=== PATIENT | female | born 1935 | race Caucasian/White ===

== ENCOUNTER 2017-12-22 10:22 | Outpatient (CLI) | payer MEDICARE, SELFPAY ==
[2017-12-22 10:44] VITALS: BP 120/42; PULSE 50; RESP 18; TEMP 36; O2SAT 98
--- NOTE | 2017-12-22 11:22 | PC.NURSE ---
pt procedure was postponed related to her not having a driver/sales workers to take her home. She will come back on Wednesday for her injection.
== END 2017-12-22 11:24 ==
LOC: RAD 10:25
PROVIDERS: Visit Provider Physical Medicine & Rehabilitation
DX: M48.02 Spinal stenosis, cervical region (principal); Z53.8 Procedure and treatment not carried out for other reasons
CPT/HCPCS: J1100; J2250

== ENCOUNTER 2017-12-28 10:51 | Outpatient (CLI) | payer MEDICARE, SELFPAY ==
[2017-12-28] VITALS (8 sets, daily range): BP systolic 100–127; BP diastolic 29–56; PULSE 47–55; RESP 16–18; TEMP 35.9; O2SAT 97–100
--- NOTE | 2017-12-28 | DI.RAD.S_ITS ---
PROCEDURE: PAIN C/T INTERLAMINAR INJECT INDICATIONS: SPINAL STENOSIS FINDINGS: Fluoroscopic spot filming was performed to verify placement of spinal needles at the C6-C7 level(s), as labeled on the films. Appropriate location(s) of the needle tip(s) was confirmed by injection of iodinated contrast. IMPRESSION: Fluoroscopy for pain management. Dictated by: Eloisa Campa M.D. on 12/28/2017 at 14:53 Approved by: Eloisa Campa M.D. on 12/28/2017 at 14:54
--- NOTE | 2017-12-28 11:18 | PM.PROC.1 ---
Procedures Date/Time Date of procedure: 12/28/17 Time of procedure: 11:26 General Procedure description: PREOP DIAGNOSIS 1. CERVICAL STENOSIS, 2. CERVICAL HNP WITH UPPER EXTREMITY RADICULAR FEATURES, POST OP DIAGNOSIS 1. CERVICAL STENOSIS, 2. CERVICAL HNP WITH UPPER EXTREMITY RADICULAR FEATURES, PROCEDURES 1. FLUORSCOPICALLY GUIDED CONTRAST CONTROLLED INTERLAMINAR EPIDURAL STEROID INJECTION - C6/7 TL EDGAR PHYSICIAN: Farrukh Chiu, DO INDICATIONS Darby is referred for treatment of Cervical Stenosis with Upper Extremity Paresthesias. FINDINGS Cervical Stenosis due to disc deterioration and nerve root irritation and nerve root irritation DESCRIPTION OF PROCEDURE Fluoroscopically guided, contrast-controlled C6/7 translaminar epidural steroid injection with conscious sedation. Following denial of allergy and review of potential side effects and complications, including, but not necessarily limited to, infection, allergic reaction, local tissue breakdown, temporary as well as permanent nerve injury, stroke, paralysis, and possible , the patient indicated that patient understood and agreed to proceed. An informed consent document was signed by the patient, witnessed by a nurse, and placed in the patient's chart. Additionally, other treatment options including modalities, medications, and physical therapy were reviewed with the patient. After review of previous anaesthesic history and IV conscious sedation the patient was deemed safe to proceed with todays procedure with IV conscious sedation as ASA class II designation. Safety time-out was performed to confirm patient ID, procedure to be performed and site of procedure. IV sedation was accomplished with a combination of 3mg of Versed administered by the RN after DO order, titrated to patient comfort during the course of the procedure while the patient remained responsive to all verbal commands. In the prone position, following sterile prep and drape of the cervical region, the C6/7 translaminar space was identified fluoroscopically. The skin was anesthetized via a 25-gauge 1.5-inch needle with 1% lidocaine solution. At this point, a 25-gauge, 2.5-inch short bevel spinal needle was atraumatically introduced and advanced under fluoroscopic guidance into epidural space at the C6/7 translaminar space. Depth was confirmed on lateral view. Radiological data, including multiple fluoroscopic views of the cervical spine, reveal a spinal needle at the C6/7 translaminar space. Lateral views then show placement of the needle in the epidural space. Subsequent views show contrast material flowing superiorly and inferiorly in the epidural space. DSA fluoroscopy with live contrast injection, once again, confirmed no vascular or intrathecal uptake. At this point, using loss of resistance technique with saline and air, the epidural space was entered. Following negative aspiration, injection of approximately 1.5 cc of Isovue-200 with live fluoroscopy in the AP view confirmed epidural flow in the epidural space without vascular or intrathecal uptake observed. Subsequently, a test dose of 1 cc of 1% lidocaine solution was injected and patient was observed for two minutes without signs or symptoms of complications, including abdominal pain, shortness of breath, bilateral upper or lower extremity weakness, nausea and vomiting, prior to steroid injection. At this point, 3 cc or 30 mg of dexamethasone was then injected without incident. The patient tolerated the procedure well without signs or symptoms of complications prior to being transferred to the recovery area for further monitoring, The patient was then transferred to the recovery area where they were observed for an appropriate period of time after the injection. The patient reported a VAS score of 6 prior to the procedure and a post-procedure VAS of 0. Total Fluoroscopy Time: 37.0 seconds Total Conscious Time: 24min POST OP INSTRUCTIONS The patient was provided a Pain Log to continue to record their response to the target-specific procedure prior to follow-up visit with the referring provider. Additionally, specific post-injection care instructions and a contact number to our office were provided if concerns arise regarding possible complications associated with the procedure are suspected. Farrukh Chiu DO Complications: none
[2017-12-28] MEDS: MIDAZOLAM 5 MG/5 ML VIAL IV (11:40)
[2017-12-28] MEDS: DEXAMETHASONE 10 MG/ML VIAL 30 MG INJ (11:50)
[2017-12-28] MEDS: IOPAMIDOL 15 ML VIAL 3 ML INJ (11:50)
[2017-12-28] MEDS: LIDOCAINE 1% 20 ML INJ 5 ML INJ (11:50)
--- NOTE | 2017-12-28 11:56 | PC.NURSE ---
assisting pt off table and transporting to post proc area in stable condition
--- NOTE | 2017-12-28 12:04 | PC.NURSE ---
received pt from post procedure, she is awake and alert, able to move from w/c to chair, resumed monitoring.
--- NOTE | 2017-12-29 12:52 | PC.NURSE ---
FOLLOW UP CALL MADE. LEFT MSG WITH CLINIC NUMBER AND HOURS FOR ANY QUESTIONS/CONCERNS.
== END 2017-12-28 12:23 | disposition home or self-care (01) ==
PROVIDERS: Visit Provider Physical Medicine & Rehabilitation
DX: M48.02 Spinal stenosis, cervical region (principal); M50.123 Cervical disc disorder at C6-C7 level with radiculopathy; R20.2 Paresthesia of skin
CPT/HCPCS: 62321; 99152; J1100; J2250

== ENCOUNTER 2018-08-25 13:12 | Outpatient (CLI) | payer MEDICARE, SELFPAY ==
[2018-08-25] VITALS (7 sets, daily range): BP systolic 114–138; BP diastolic 44–63; PULSE 53–71; RESP 16; TEMP 36.2; O2SAT 99–100
--- NOTE | 2018-08-25 13:13 | DI.RAD.S_ITS ---
PROCEDURE: PAIN L/S TRANSFORAMINAL INJECT INDICATIONS: SPINAL STENOSIS FINDINGS: Fluoroscopic spot filming was performed to verify placement of spinal needles at the L5-S1 level(s), as labeled on the films. Appropriate location(s) of the needle tip(s) was confirmed by injection of iodinated contrast. IMPRESSION: Fluoroscopy for pain management. Dictated by: Eloisa Campa M.D. on 08/25/2018 at 18:00 Approved by: Eloisa Campa M.D. on 08/25/2018 at 18:00
--- NOTE | 2018-08-25 13:47 | PM.PROC.1 ---
Procedures Date/Time Date of procedure: 08/25/18 Time of procedure: 14:11 General Procedure description: PREOP DIAGNOSIS 1. FORMAINAL STENOSIS WITH LE SYMPTOMS POST OP DIAGNOSIS 1. FORMAINAL STENOSIS WITH LE SYMPTOMS PROCEDURES 1. FLUOROSCOPICALLY GUIDED CONTRAST CONTROLLED TRANSFORAMINAL EPIDURAL STEROID INJECTION - Left L5/S1 PHYSICIAN: Farrukh Chiu DO INDICATIONS: Darby is referred for treatment of Foraminal Stenosis with left LE Symptoms FINDINGS Foraminal Nerve Root Compression secondary to disc disease and facet hypertrophy DESCRIPTION OF PROCEDURE: Following review of allergy and review of potential side effects and complications, including, but not necessarily limited to, infection, allergic reaction, local tissue breakdown, stroke, temporary or permanent nerve injury, paralysis, and possible , the patient indicated that the patient understood and agreed to proceed. An informed consent document was signed by the patient, witnessed by a nurse, and placed in the patient's chart. Additionally, other treatment options including medications, modalities, and physical therapy were reviewed with the patient. After review of previous anaesthesic history and IV conscious sedation the patient was deemed safe to proceed with todays procedure with IV conscious sedation as ASA class II designation. Safety time-out was performed to confirm patient ID, procedure to be performed and site of procedure. IV sedation was accomplished with a combination of 2mg of Versed and 50mcg of Fentanyl was administered by the RN after DO order, titrated to patient comfort during the course of the procedure while the patient remained responsive to all verbal commands In the prone position following sterile prep and drape of the lumbar region, the Left L5/S1 posterior neuroforamen was identified fluoroscopically. The skin was anesthetized via a 25-gauge 1.5-inch needle with 1% lidocaine solution. At this point, a 25-gauge 3.5-inch spinal needle was atraumatically introduced and advanced under fluoroscopic guidance through the posterior Left L5/S1 neuroforamen to approximately the anterior aspect of the canal. Depth was confirmed on lateral view. Following negative aspiration, injection of approximately 1.5 cc of Isovue 200 under live fluoroscopy in the AP view confirmed excellent flow along the nerve root, into the epidural space without vascular or intrathecal uptake observed Radiological data, including multiple fluoroscopic views of the lumbosacral spine, reveal a spinal needle at the Left L5/S1 posterior neuroforamen. Subsequent views show flow of contrast material flowing superiorly and inferiorly along the nerve root confirming epidural flow. Subsequently, a test dose of 1.5 cc of 1% lidocaine solution was administered and patient was observed for two minutes for signs or symptoms of complications, including abdominal pain, shortness of breath, bilateral upper or lower extremity weakness, nausea and vomiting, prior to steroid injection. At this point, a total of 2cc or 20mg of dexamethasone was injected without incident. The procedure tolerated the procedure well without signs or symptoms of complications prior to transfer to the recovery area continued monitoring without incident. The patient was then transferred to the recovery area where they were observed for an appropriate time after the injection. The patient reported a VAS score of 7 prior to the procedure and a post-procedure VAS of 0. Total Fluoroscopy Time: 20.9 seconds Total Conscious Sedation Time: 24min POST OP INSTRUCTIONS The patient was provided a Pain Log to continue to record their response to the target-specific procedure prior to follow-up visit with their referring physician. Additionally, specific post-injection care instructions and a contact number to our office were provided if concerns arise regarding possible complications associated with the procedure are suspected. Farrukh Chiu DO Complications: none
[2018-08-25] MEDS: fentaNYL 100 MCG/2 ML INJ 50 MCG IV (13:50)
[2018-08-25] MEDS: MIDAZOLAM 5 MG/5 ML VIAL IV (13:50)
[2018-08-25] MEDS: BUPIVACAINE 0.25% (PF) VIAL 2 ML INJ (13:57)
[2018-08-25] MEDS: BETAMETHASONE 30 MG/5 ML MDV 12 MG INJ (13:57)
[2018-08-25] MEDS: IOPAMIDOL 15 ML VIAL 3 ML INJ (13:57)
[2018-08-25] MEDS: DEXAMETHASONE 10 MG/ML VIAL 20 MG INJ (14:00)
--- NOTE | 2018-08-25 14:05 | PC.NURSE ---
pt tolerated procedure well. Able to get off the table with 2 person minimal assist. She was a little unsteady on her feet related to the sedation. Transferred pt via wheelchair to pre procedure room for continued monitoring with Yun BETHEA.
--- NOTE | 2018-08-25 14:17 | PC.NURSE ---
ACCEPTED CARE OF PT IN POST PROC AREA IN STABLE CONDITION
== END 2018-08-25 14:40 | disposition home or self-care (01) ==
LOC: RAD 13:13
PROVIDERS: Visit Provider Physical Medicine & Rehabilitation
DX: M48.07 Spinal stenosis, lumbosacral region (principal); M51.17 Intervertebral disc disorders with radiculopathy, lumbosacral region
CPT/HCPCS: 64483; 99152; J0702; J1100; J2250; J3010

== ENCOUNTER 2018-12-23 10:44 | Outpatient (CLI) | payer MEDICARE, SELFPAY ==
[2018-12-23] VITALS (7 sets, daily range): BP systolic 100–145; BP diastolic 35–78; PULSE 50–80; RESP 16–20; TEMP 36.7; O2SAT 99–100
--- NOTE | 2018-12-23 10:47 | DI.RAD.S_ITS ---
PROCEDURE: PAIN L/S MED/LAT N RFA INDICATIONS: SPONDYLOSIS FINDINGS: Fluoroscopic spot filming was performed to verify placement of spinal needles at the L5 and S1 level(s), as labeled on the films. Appropriate location(s) of the needle tip(s) was confirmed by injection of iodinated contrast. There is discectomy and posterior fusion at L4-L5. IMPRESSION: Fluoroscopy for pain management. Dictated by: Eloisa Campa M.D. on 12/23/2018 at 17:11 Approved by: Eloisa Campa M.D. on 12/23/2018 at 17:11
[2018-12-23] MEDS: MIDAZOLAM 5 MG/5 ML VIAL IV (12:28)
[2018-12-23] MEDS: fentaNYL 100 MCG/2 ML INJ 50 MCG IV (12:29)
[2018-12-23] MEDS: LIDOCAINE 1% 20 ML 10 ML INJ (12:34)
[2018-12-23] MEDS: BETAMETHASONE 30 MG/5 ML MDV 12 MG INJ (12:34)
[2018-12-23] MEDS: BUPIVACAINE 0.5% (PF) VIAL 2 ML INJ (12:34)
--- NOTE | 2018-12-23 12:39 | PC.NURSE ---
ASSISTING PT OFF TABLE AND TRANSPORTING TO POST PROC AREA IN STABLE CONDITION.
--- NOTE | 2018-12-23 12:50 | P.PCN_ITS ---
Procedures Date/Time Date of procedure: 12/23/18 Time of procedure: 12:50 General Procedure description: PREOP DIAGNOSIS 1. RECALCITRANT FACET ARTHROPATHY, POST OP DIAGNOSIS 1. RECALCITRANT FACET ARTHROPATHY, PROCEDURES 1. LEFT L5 MEDIAL BRANCH RADIOFREQUENCY NEUROTOMY AND LEFT S1 DORSAL RAMUS RADIOFREQUENCY NEUROTOMY, PHYSICIAN: DO HIRO Laurent Darby is referred for treatment of facet arthropathy. DESCRIPTION OF PROCEDURE Left L5 medial branch radiofrequency neurotomy and left S1 dorsal ramus branch radiofrequency neurotomy under fluoroscopy with conscious sedation. The patient is well known to this clinic having undergone previous facet injections with good but temporary relief. The patient has experienced appropriate, concordant relief with previous facet and median branch blocks but the patient's pain has been recalcitrant to further conservative measures. Therefore, based upon the patient's relief and persistent symptoms, the patient is considered an appropriate candidate for facet rhizotomy. All of the patient's questions regarding the risks versus benefits of the procedure, including, but not limited to, bleeding, infection, temporary as well as lasting nerve injury, paralysis, stroke, and , as well treatment alternatives were answered to satisfaction. After obtaining informed consent, denial of pertinent drug allergies, as well as being made aware of the potential risks of bleeding, infection, spinal cord trauma, paralysis, temporary and permanent nerve damage, seizure, stroke, and possible , the patient was brought to the fluoroscopy suite and positioned prone on the fluoroscopy table. The lumbar region was prepped with Betadine and covered with a fenestrated drape in the usual sterile fashion. Appropriate monitors applied including pulse oximeter, pulse, and blood pressure for regular monitoring throughout the procedure. IV sedation was accomplished with a combination of 2mg of Versed and 50mcg of Fentanyl titrated to patient comfort during the course of the procedure while the patient remained responsive to all verbal commands. After local infiltration using 1% lidocaine, under fluoroscopic guidance, a 10- cm RF insulated needle with a 10-mm active tip was positioned parallel to the junction of the left sacral ala and the superior articulating process where the S1 dorsal ramus resides. Needle placement was confirmed with sensory stimulat ion at 50 Hz, with motor stimulation of .5v on the left which produced local stimulation without radicular component. The stimulation was then increased to 1.5v with, once again, only local multifidus stimulation without radicular component. This was then followed by two discreet lesions performed at 80 degrees Celsius for 90 seconds each. The needle was then removed and the identical procedure was performed along the length of the left L5 medial branch with motor stimulation at .7v on the left. The patient tolerated the procedure well without signs or symptoms of complications prior to transfer to the recovery area continued monitoring without incident. The patient was then transferred to the recovery area where they were observed for an appropriate period of time after the injection. The patient was then transferred to the recovery area where they were observed for an appropriate period of time after the injection. The patient reported a VAS score of 9 prior to the procedure and a post- procedure VAS of 0. Total Fluoroscopy Time: 22.7 seconds Total Conscious Sedation Time: 34min POST OP INSTRUCTIONS The patient was provided a Pain Log to continue to record the patient's response to the target-specific procedure prior to the patient's follow-up visit with the referring physician. Additionally, specific post-injection care instructions and a contact number to our office were provided if concerns arise regarding possible complications associated with the procedure are suspected. Farrukh Chiu DO Complications: none
--- NOTE | 2018-12-23 12:53 | PC.NURSE ---
PT TRANSPORTED TO POST PROC AREA IN STABLE CONDITION. CONTINUES TO BE IN STABLE CONDITION.
== END 2018-12-23 13:10 | disposition home or self-care (01) ==
LOC: RAD 10:46
PROVIDERS: Visit Provider Physical Medicine & Rehabilitation
DX: M47.817 Spondylosis without myelopathy or radiculopathy, lumbosacral region (principal)
CPT/HCPCS: 64635; 99152; J0702; J2250; J3010

== ENCOUNTER → 2019-07-19 11:17 | Outpatient (CLI) | payer MEDICARE, SELFPAY ==
[2019-07-20 07:44] LABS: COVID19 Sendout Not Detected (Not Detect)
== END ==
PROVIDERS: Visit Provider Registered Nurse
DX: Z01.812 Encounter for preprocedural laboratory examination (principal)
CPT/HCPCS: 87635

== ENCOUNTER 2019-07-21 06:37 | Day surgery (SDC) | payer MEDICARE, SELFPAY ==
[2019-04-27 08:16] VITALS: BMI 25.0
[2019-07-17 14:14] VITALS: BMI 25.0
[2019-07-21] VITALS (18 sets, daily range): BP systolic 124–180; BP diastolic 57–94; PULSE 60–75; RESP 7–24; TEMP 35.8–36.7; O2SAT 92–100; BMI 25.0
--- NOTE | 2019-07-21 | DI.RAD.S_ITS ---
PROCEDURE: XR CERVICAL SPINE 2V OR 3V INDICATIONS: C5-6, C6-7 ACDF WEST INPLANTS TECHNIQUE: 2 view(s) of the cervical spine were acquired. COMPARISON: None. FINDINGS: Bones: No fractures or dislocations to the T1 level. Postsurgical changes compatible C5-C6 and C6-C7 ACDF. No suspicious bony lesions. Soft tissues: No prevertebral soft tissue swelling. IMPRESSION: Status post C5-C6 and C6-C7 ACDF. Dictated by: Isis Chambers MD, PhD on 07/21/2019 at 9:39 Approved by: Isis Chambers MD, PhD on 07/21/2019 at 9:42
--- NOTE | 2019-07-21 07:19 | PM.PREOP ---
Pre-operative Note COVID-19 COVID-19 status: Negative Result date/Date tested (Pos, Neg/Pending): 07/19/19 Interval Note History & Physical reviewed/Exam performed by Physician: Yes Changes to H&P: No
[2019-07-21] MEDS: ACETAMINOPHEN 325 MG TABLET 975 MG PO (07:30)
[2019-07-21] MEDS: GABAPENTIN 300 MG CAPSULE PO ×2 (07:30→20:09)
[2019-07-21] MEDS: LACTATED RINGERS 1,000 ML 42 ML IV ×2 (07:31→09:50)
[2019-07-21] MEDS: CLINDAMYCIN 900 MG/50 ML PIGGYBACK 50 MG IV (07:47)
--- NOTE | 2019-07-21 08:22 | SUR.OPER ---
Supine, head on gel donut. Arms padded with gel pads, tucked at sides, towel roll under shoulders. Safety belt at thigh. Legs uncrossed.
[2019-07-21] MEDS: BUPIVACAINE 0.25% W/ EPI 30 ML VIAL INJ (08:29)
[2019-07-21] MEDS: SODIUM CHLORIDE 0.9% 1,000 ML, GENTAMICIN 80 MG IRR (08:30)
[2019-07-21] MEDS: THROMBIN (RECOMBINANT) 5,000 UNIT VIAL 5000 UNIT TOP (08:30)
[2019-07-21] MEDS: INSULIN ASPART 100 UNIT/ML 10ML VIAL SUBCUT (09:09)
--- NOTE | 2019-07-21 09:21 | PM.OP.1 ---
Operative Date/Time/Diagnoses Date of procedure: 07/21/19 Time of procedure: 09:21 Pre-op diagnosis: Cervical disc herniation with myelopathy. Post-op diagnosis: same Procedure & Clinicians Procedure: C5-6, C6-7 anterior cervical diskectomy and fusion with cage and bone graft aspirate Use of microscope Same procedure as scheduled: Yes Indications: [age] year old female with intractable pain from cervical myelopathy. They had failed conservative management and requested operative intervention. Risks and benefits of surgery were discussed and appropriate consents were obtained. Surgeon: Haryr Mclaughlin Fiberglass Quality Technician: Victor Manuel Solomon Anesthesia Type: General Operative Notes Findings: None Closure Type: primary Specimen(s): none sent Prosthetic devices, grafts, tissues, transplants, or devices: Isabella WEST-C Estimated Blood Loss (mL): 10 Procedure in detail: Patient was brought to the operating room and intubated on the table. A time-out was performed. Preoperative antibiotics were given. The neck was prepped and draped in the standard sterile fashion. Using a skin fold, we made a 3 cm oblique incision on the left side. We used Bovie to go through the platysma and then did a standard anterolateral blunt dissection down to the precervical fascia. Fascia was nicked and elevated up. A marker was placed and x-ray was taken for localization. We then subperiosteally elevated up the longus colli muscles. Self-retaining retractors were placed. [place] pins were placed at C6-7. We then brought in the microscope. A scalpel used to perform an annulotomy. We then used a combination of pituitaries and curettes and Kerrison to perform a complete anterior diskectomy at C6-7. We used the bur to take down the posterior osteophytes. We took down the PLL and used Kerrison to remove any posterior disc material and osteophytes. At the end we could from the nerve hook cephalad caudally and out the foramen and everything was opened. A small stab incision was made over the left anterior iliac crest. A Jamshidi needle was advanced into the pelvis and 2 mL of bone marrow was aspirated. We then used the trials. We then packed a 14 x 15.5 x 6 mm mm WEST-C cage with Primagen bone graft and the iliac crest harvest. The cage was placed under fluoroscopic guidance. We then placed our two locking plates. The self-retaining retractors and [place] pins were moved up to the C5-6 level. A scalpel used for an annulotomy at C5-6. We then used pituitaries, curettes, Kerrisons, and a bur to complete the diskectomy and take down the posterior osteophytes. Once we took down the PLL, the Kerrisons were used to remove the remainder of the posterior osteophytes. The nerve hook could be run cephalad caudally out the foramen and there was no neural compression. We again trialed and then placed another 14 x 15.5 x 6 mm cage with bone graft at the C5-6 level the anterior fusion at this level. The retractors removed and final x-rays taken. The wound was irrigated. There was no bleeding. The carotid was beating nicely. The platysma was closed. The superficial was closed. The skin was closed. A sterile dressing was placed. They were then extubated and brought to recovery room with no complications. Complications: none Post-operative Condition: stable Disposition: PACU Plan for aftercare: Inpatient. Up with PT. Probable discharge tomorrow.
[2019-07-21] MEDS: fentaNYL 100 MCG/2 ML INJ IV ×4 (09:24→09:40)
[2019-07-21] MEDS: HYDROMORPHONE 2 MG INJ IV ×8 (09:29→10:05)
[2019-07-21] MEDS: hydrOXYzine pamoate 25 MG CAPSULE PO (09:48)
[2019-07-21] MEDS: OXYCODONE IR 5 MG TABLET PO (09:48)
--- NOTE | 2019-07-21 11:07 | SUR.PHASEI ---
Patient taken up to room 205 with all belongings. Left in stable condition with receiving RN at bedside.
[2019-07-21] MEDS: LACTATED RINGERS 1,000 ML 125 ML IV ×2 (11:25→19:46)
[2019-07-21] MEDS: INSULIN ASPART 100 UNIT/ML INSULN PEN SUBCUT ×4 (12:39→20:56)
--- NOTE | 2019-07-21 13:19 | PC.NURSE ---
Day Shift- Report rec'd from NEEMA Moreno at 1028. Pt arrived to unit room 205 at 1100 via bed. Oriented to call light. HOB needs to be elevated above 30 degrees at all times. RR 10 bpm when asleep, awakens easily with verbal stimulation. O2 sat on RA while asleep was 88%, placed back on 2L NC O2. Sat increased to 95%. Anterior neck incision covered with CDI gauze and tegaderm dressing. Left groin incision dressing CDI of gauze and tegaderm. Soft neck collar in place. Pt's friend Nrom called at 1200 for an update. Pt approves okay to give info to Bella and Norm, see admission assessment. Pt reports having BM's at home every 5-7 days, last BM being on Tuesday 07/18. High fall risk precautions in place, bed alarm on, call light within reach. Speech in to see pt at 1320. Pt has tolerated ice chips, water, small bites of fruit. Pt states having a history of right side throat swallowing difficulty at different times regardless of texture, foods, liquids, pills. Pt did have nausea around 1250, scant amount of gastric emesis and gagging. Settled without medication.
--- NOTE | 2019-07-21 13:55 | ST.IPSCREEN ---
Addendum entered and electronically signed by Lynette Logan 07/21/19 14:11: Comprehensive ST evaluation not warranted at this time. Swallowing WFL. Discharge ST evaluation. Original Note: Darby seen for a swallow screen following ACDF surgery performed earlier today. Nursing reported no overt s/sx of aspiration since transferred from surgery to room this morning. KEY ACCOUNT DIRECTOR observed patient eating cantaloupe, turkey, and drinking water from a straw without any overt s/sx of aspiration. Patient's 02 sats remained 98-100. KEY ACCOUNT DIRECTOR provided patient with ACDF handout explaining voice and swallow changes post ACDF surgery. KEY ACCOUNT DIRECTOR reviewed handout with patient and placed it on her table. Marla Arteaga MS, CF-KEY ACCOUNT DIRECTOR
--- NOTE | 2019-07-21 14:25 | PT.IIE ---
Current Diagnoses Spinal stenosis, cervical region (07/21/19) Surgery Performed Operation Date: 05/02/19 10:00 <No data on this case meets the specified criteria> Operation Date: 07/21/19 07:45 Actual Procedures p C5-6 & C6-7 Anterior cervical discectomy and fusion w/bone graft - Harry Mclaughlin MD Surgical History (Last Updated 04/27/19 @ 08:43 by Fide Sin RN) History of aortic valve replacement (11/10/08) History of arthroplasty of left knee (Acute 10/18/13) History of back surgery (Acute 2010) History of bladder suspension procedure History of cataract removal with insertion of prosthetic lens History of surgery (Acute) History of third molar tooth extraction Hx of abdominoplasty (Acute) Hx of appendectomy (Acute) Hx of CABG (Acute) Hx of cardiac cath (Acute) Hx of foot surgery (Acute) S/P TAVR (transcatheter aortic valve replacement) (Acute 04/26/18) Status post laparoscopic cholecystectomy (1992) Status post vaginal hysterectomy Medical History (Last Updated 07/18/19 @ 13:00 by Fide Sin RN) Anxiety disorder (Acute) Arthritis (Acute) Awareness under anesthesia (Acute 1975) CAD (coronary artery disease) (Acute) COPD (chronic obstructive pulmonary disease) (Acute) Diabetes (Acute) Dizziness (Acute) Easy bruisability (Acute) Hiatal hernia (Acute) HTN (hypertension) (Acute) Hypothyroid (Acute) LBBB (left bundle branch block) (Acute) Myocardial infarction (Acute) PAF (paroxysmal atrial fibrillation) (Acute 11/10/08) Pneumonia (Acute 04/2019) Sciatic pain (Acute) Spondylosis without myelopathy or radiculopathy, lumbosacral region (Acute) Physical Therapy Inpatient Evaluation/Re-Eval M1 PT/OT-IP Prior Functional Status Start: 07/21/19 15:14 Freq: NEEDED Status: Active Protocol: Document 07/21/19 14:25 AB (Rec: 07/21/19 15:57 AB [id number]) Medical Review Prior Functional Status Medical History Reviewed Yes Communication able to make needs known Mobility and Gait pt stated that she is modified independent with all mobilities and ambulation without AD. pt stated that she was still driving prior to surgery Social History Household Members none Living Arrangements House Number of Floors (Floors) One Floor Number of Stairs To Enter/Railing? has 4 steps to enter with bilateral rails but pt stated that she holds on with B hand on 1 rail Home Environment High Toilet,Tub/Shower Home Equipment Front Wheel Walker,Grab Bars In Shower M2 PT-IP Current Condition Start: 07/21/19 15:14 Freq: NEEDED Status: Active Protocol: Document 07/21/19 14:25 AB (Rec: 07/21/19 15:57 AB [id number]) Physical Therapy Current Condition Current Condition Evaluation Date 07/21/19 Treatment Diagnosis s/p C5-7 ACDF; difficulty in walking Onset Date 07/21/19 Precautions Cervical Spine Precautions Soft Collar for Comfort,No Heavy Lifting,Log Roll M3 PT-IP Subjective Start: 07/21/19 15:14 Freq: NEEDED Status: Active Protocol: Document 07/21/19 14:25 AB (Rec: 07/21/19 15:57 AB [id number]) Subjective Physical Therapy Visit Type Type Initial Evaluation Visit Start Time 14:25 Visit Stop Time 15:04 Total Visit Minutes 39 Number of CAN FILLER Visits 0 Physical Therapy Visit Comments Patient Comments pt agreeable to do PT Therapy Pain Assessment Pain When Pain Assessed At Rest Pain Present Pain Present Pain Reported Location neck Intensity 4 Scale Used Numeric (1 - 10) Pain Management Techniques Re-positioning,Timing of Activity with Medications M4 PT-IP Mobility and Gait Start: 07/21/19 15:14 Freq: NEEDED Status: Active Protocol: Document 07/21/19 14:25 AB (Rec: 07/21/19 15:57 AB [id number]) PT-Bed Mobility Assessment Rolling Type of Rolling Log Rolling Level of Assist Standby Assistance Supine to Sit Supine to Sit Standby Assistance Sit to Supine Sit to Supine Standby Assistance Scooting Scooting to Edge of Bed Standby Assistance PT-Transfer Assessment Sit to and From Stand Sit to and from Stand Contact Guard Assistance,1 Person Assistance,Use of Upper Extremities Equipment Transfer Assistive Device None,Gait Belt Orthotic/Prosthetic Devices or Brace: Yes Transfers Transfer Destination Toilet Transfer Technique ambulated without AD Transfer Ability Level of Assist Contact Guard Assistance, Minimal Assistance,Use of Upper Extremities Comments Mobility Comments educated on cervical precautions and log roll bed mobility. BP: 125/65. pt completed supine to sit SBA. able to completed sit to stand CGA. pt has macular degeneration and had decrease vision/depth perception. pt was able to ambulated from bed towards the sink. educated on cervical soft collar management but pt needed assistance due to vision impairment. c/o slight ooziness but stated caitlin she is ok and pt requested to use the toilet and ambulated towards the toilet without AD CGA to min A. pt tends to hold on to the counter/green for balance. was able to completed sit to stand from the toilet using grab bar SBA and ambulated towards the sink without AD CGA to min A. pt was able to maintain standing balance CGA while completing handwashing. ambulated back to bed without AD CGA. completed bed mobility supine <>sit SBA with reminder to do log roll. postioned pt in bed. call light and table placed within reach. Gait Assessment Gait Gait Assistance Required: Contact Guard Assist,Minimum Assistance Distance (Feet) 15 Able to Maintain Weight Bearing Status Yes During Gait Assistive Devices Assistive Device None Orthotic/Prosthetic Devices or Brace: No Gait Deviations General Gait Pattern Antalgic,Wide Based Gait Factors Limiting Gait Function Factors Limiting Gait Function Decreased Activity Tolerance, Decreased Strength,Pain,Poor Balance Comments Gait Comments presents with unsteady wide based shuffling gait and tends to hold on to the wall/ counter for balance. pt has macular degeneration affecting balance. PT-Balance Assessment Sitting Balance and Reactions Static Sitting Balance Ability Good Dynamic Sitting Balance Ability Good Standing Balance and Reactions Static Standing Balance Ability Fair Dynamic Standing Balance Ability Fair Device Used without AD M5 PT-IP Objective Assessments Start: 07/21/19 15:14 Freq: NEEDED Status: Active Protocol: Document 07/21/19 14:25 AB (Rec: 07/21/19 15:57 AB [id number]) Orientation Orientation/Cognition Level of Alertness Alert Orientation Name,Place,Situation Language Function Ability No Deficits Noted Safety Awareness Understands Safety Issues Memory Description No Deficits Noted Gross Range of Motion Lower Extremity ROM Assessment Within Functional Limits Strength Lower Extremity Strength Assessment Within Functional Limits Sensation Assessment Sensation Gross Sensation Right UE Impaired Comments Sensation Comments c/o chronic tingling on RUE Muscle Tone Muscle Tone WNL Yes M6 PT-IP Treatment Start: 07/21/19 15:14 Freq: NEEDED Status: Active Protocol: Document 07/21/19 14:25 AB (Rec: 07/21/19 15:57 AB [id number]) Physical Therapy Treatment Education Education Provided Precautions,Post-Op Packet, Safety M7 PT-IP Assessment and Plan Start: 07/21/19 15:14 Freq: NEEDED Status: Active Protocol: Document 07/21/19 14:25 AB (Rec: 07/21/19 15:57 AB [id number]) PT Summary Assessment and Plan Potential Rehabilitation Potential Good Status of Condition at Evaluation Stable Summary Impairments Pain,ROM,Strength,Balance, Coordination,Sensation,Bed Mobility,Transfers,Gait, Activity Tolerance Assessment Summary pt requiring CGA with mobility and has a vision impairment affecting balance. pt plans to go home and a friend can assist her as needed but will not be able to stay with her. will continue to assess progress to determine safe d/c plan. Goals Bed Mobility Goal Independent Transfer Goal Independent Gait Goal Independent Gait Distance 200 Other Goals up/down 4 steps B rails SBA Days to Meet Goals 3 Frequency of Treatment Frequency Of Treatment Twice a Day Treatment Plan Physical Therapy Treatment Plan Bed Mobility Training,Transfer Training,Gait Training, Therapeutic Exercise,Balance Retraining,Post Op Education, Discharge Planning,Hot or Cold Pack,Neuromuscular Re-ed, Coordination Retraining,Manual Therapy Other Recommendations and Next Treatment ambulation, stair climbing, Focus bed mobility Recommendations To Nursing Amount of Assist Needed 1 Person Assist Discharge Recommendations PT Discharge Recommendations Home with Assistance, Outpatient PT Transportation Needs at Discharge Private Vehicle
[2019-07-21] MEDS: CELECOXIB 200 MG CAPSULE 400 MG PO (14:32)
[2019-07-21] MEDS: CLINDAMYCIN 600 MG/50 ML PIGGYBACK 50 MG IV (16:56)
[2019-07-21] MEDS: HYDROMORPHONE 0.5 MG INJ IV (16:57)
[2019-07-21] MEDS: CHOLECALCIFEROL (VITAMIN D3) 1,000 UNIT TABLET 1000 UNIT PO (20:07)
[2019-07-21] MEDS: SENNOSIDES 8.6 MG TABLET 17.2 MG PO (20:07)
[2019-07-21] MEDS: DOCUSATE 100 MG CAPSULE PO (20:08)
[2019-07-21] MEDS: ASCORBIC ACID 500 MG TABLET PO (20:08)
[2019-07-21] MEDS: ZOLPIDEM 5 MG TABLET 10 MG PO (20:08)
[2019-07-21] MEDS: VIT C/E/ZN/COPPR/LUTEIN/ZEAXAN CAPSULE 1 CAP PO (20:12)
[2019-07-21] MEDS: SODIUM CHLORIDE 0.9% FLUSH 10 ML IV (20:29)
[2019-07-21] MEDS: CELECOXIB 200 MG CAPSULE PO (20:30)
--- NOTE | 2019-07-21 23:34 | PC.NURSE ---
Pt concerned with her blood glucose levels, requested more short acting insulin. call center team leader MD Mustafa ordered medium level sliding scale.
[2019-07-22 00:05] VITALS: O2SAT 100
[2019-07-22] MEDS: CLINDAMYCIN 600 MG/50 ML PIGGYBACK 50 MG IV (00:07)
--- NOTE | 2019-07-22 01:50 | PC.NURSE ---
Pt. confused, trying to get OOB without calling for assistance. States I thought I was at home & I need to use the BR. Still sedated & denies any pain. Will cont. POC & monitor.
[2019-07-22 05:00] VITALS: BP 131/57; PULSE 62; RESP 18; TEMP 36.7; O2SAT 95
[2019-07-22] MEDS: OXYCODONE IR 5 MG TABLET PO ×2 (05:10→10:36)
[2019-07-22 08:00] VITALS: BP 151/66; PULSE 64; RESP 18; TEMP 36.4; O2SAT 97
--- NOTE | 2019-07-22 08:57 | OT.IP.EVAL ---
Current Diagnoses Spinal stenosis, cervical region (07/21/19) Surgery Performed Operation Date: 05/02/19 10:00 <No data on this case meets the specified criteria> Operation Date: 07/21/19 07:45 Actual Procedures p C5-6 & C6-7 Anterior cervical discectomy and fusion w/bone graft - Harry Mclaughlin MD Past Medical History (Last Updated 07/18/19 @ 13:00 by Fide Sin, RN) Anxiety disorder (Acute) Arthritis (Acute) Awareness under anesthesia (Acute 1975) CAD (coronary artery disease) (Acute) COPD (chronic obstructive pulmonary disease) (Acute) Diabetes (Acute) Dizziness (Acute) Easy bruisability (Acute) Hiatal hernia (Acute) HTN (hypertension) (Acute) Hypothyroid (Acute) LBBB (left bundle branch block) (Acute) Myocardial infarction (Acute) PAF (paroxysmal atrial fibrillation) (Acute 11/10/08) Pneumonia (Acute 04/2019) Sciatic pain (Acute) Spondylosis without myelopathy or radiculopathy, lumbosacral region (Acute) Surgical History (Last Updated 04/27/19 @ 08:43 by Fide Sin RN) History of aortic valve replacement (11/10/08) History of arthroplasty of left knee (Acute 10/18/13) History of back surgery (Acute 2010) History of bladder suspension procedure History of cataract removal with insertion of prosthetic lens History of surgery (Acute) History of third molar tooth extraction Hx of abdominoplasty (Acute) Hx of appendectomy (Acute) Hx of CABG (Acute) Hx of cardiac cath (Acute) Hx of foot surgery (Acute) S/P TAVR (transcatheter aortic valve replacement) (Acute 04/26/18) Status post laparoscopic cholecystectomy (1992) Status post vaginal hysterectomy Occupational Therapy Inpatient Evaluation/Re-Eval M1 PT/OT-IP Prior Functional Status Start: 07/22/19 12:40 Freq: NEEDED Status: Active Protocol: Document 07/22/19 08:57 [facility] (Rec: 07/22/19 13:14 [facility] [id number]) Medical Review Prior Functional Status Medical History Reviewed Yes Communication able to make needs known Mobility and Gait pt stated that she is modified independent with all mobilities and ambulation without AD. pt stated that she was still driving prior to surgery Pt states will have a friend stay with her during the day for a couple days. Activities of Daily Living and IADL's Pt states is independent for all ADl and IADL needs. Pt has neighbors that can also help her for shopping and IADL needs. Pt states that she will not longer drive anymore due to her poor vision Social History Household Members none Living Arrangements House Number of Floors (Floors) One Floor Number of Stairs To Enter/Railing? has 4 steps to enter with bilateral rails but pt stated that she holds on with B hand on 1 rail Home Environment High Toilet,Tub/Shower Home Equipment Front Wheel Walker,Grab Bars In Shower M2 OT-IP Current Condition Start: 07/22/19 12:40 Freq: Status: Active Protocol: Document 07/22/19 08:57 [facility] (Rec: 07/22/19 13:14 [facility] [id number]) Occupational Therapy Current Condition Current Condition Evaluation Date 07/22/19 Treatment Diagnosis s/p C5-7 ACDF Diagnosis Onset Date 07/21/19 Post Operative Precautions Cervical Spine Precautions Soft Collar for Comfort,No Heavy Lifting,Log Roll Weight Bearing Status Weight Bearing Status Weight Bear as Tolerated M3 OT- IP Subjective and Pain Start: 07/22/19 12:40 Freq: Status: Active Protocol: Document 07/22/19 08:57 [facility] (Rec: 07/22/19 13:14 [facility] [id number]) OT- Subjective Occupational Therapy Visit Type Type Initial Evaluation Visit Start Time 08:57 Visit Stop Time 09:35 Occupational Therapy Visit Comments Patient Comments Pt agreed to get up and get dressed . Patient/Caregiver Goals To go home. OT Pain Assessment Pain When Pain Assessed At Rest Pain Present Pain Present Denied Pain M4 OT- IP ADL's Start: 07/22/19 12:40 Freq: Status: Active Protocol: Document 07/22/19 08:57 [facility] (Rec: 07/22/19 13:14 [facility] [id number]) OT [id number] Comments OT Self-Feeding Comments Pt states has no difficulties. Emphasized to make sure to sit upright , eat softer foods , and pt states able to read the swallow information sheet that GOAT FARMER gave her. OT ADL-Grooming General Evaluation Grooming Ability Independent Comments OT Grooming Comments Pt able to independently suha/ doff soft collar. OT ADL-Oral Care General Eval Oral Care Ability Independent Comments Oral Care Comments VC to lean to spit into the sink or spit into a cup. OT ADL-Dressing General Eval Upper Body Dressing Ability Minimal Assistance Lower Body Dressing Ability Standby Assistance Comments OT Dressing Comments Pt needing assist for front closure of her bra as not able to bend her neck to do it. Pt states will not wear a bra at home. Pt needing cues to sit down in order to do LB dressing needs for safety as trying to stand with grab bar but a little unsteady on her feet. OT ADL-Toileting General Evaluation Toileting Ability Independent Comments OT Toileting Comments Pt uses pads foro occasinal incontinence. OT ADL-Bathing Comments OT Bathing Comments Pt not wanting to shower at this time. Recommended to have friend be present and in addition a shower chair would be beneficial along with HHPS. M5 OT- IP IADL's Start: 07/22/19 12:40 Freq: Status: Active Protocol: Document 07/22/19 08:57 [facility] (Rec: 07/22/19 13:14 [facility] [id number]) OT-Instrumental Activities of Daily Living Home Safety Awareness Awareness of Need for Assistance at Home Good Awareness Ability to Problem Solve Emergency Able to Problem Solve Situations Medication Management Medication Management No Deficits Identified Medication Management Comments Pt uses her magnifying glass to prepare her medications. Money Management Money Management Comments Pt makes check or automatic bill pay. Meal Preparation Meal Preparation Comments Pt states has meals frozen already. Aircraft Cabin Cleaner Aircraft Cabin Cleaner Comments Pt's friends to come and assist. Driving Driving Comments Pt states will no longer drive . M6 OT- IP Functional Cognition Start: 07/22/19 12:40 Freq: Status: Active Protocol: Document 07/22/19 08:57 [facility] (Rec: 07/22/19 13:14 [facility] [id number]) Cognitive Factors Limiting Selfcare Function Cognitive Ability Level of Alertness Alert Patient Orientation Name,Age,Birthday,Month,Date, Year,Day of Week,Place, Situation Attention Span Ability Capable of Focused Attention, Capable of Sustained Attention Ability to Follow Commands Able to Follow Multi-Step Commands Memory Description No Deficits Noted Safety Awareness Underestimates Need for Assistance Problem Solving Ability Needs Assist to Identify Solutions Cognitive Comments Cognitive Assessment Comments Pt a little impulsive and needing cues to slow down. VC for safety awareness for log rolling in bed and to sit for LB Dressing needs. OT- Vision and Hearing OT- Hearing Assessment OT- Hearing Assessment WFL OT- Vision Assessment Vision History Macular Degeneration Visual Acuity Glasses All The Time M7 OT- IP Mobility and Balance Start: 07/22/19 12:40 Freq: Status: Active Protocol: Document 07/22/19 08:57 [facility] (Rec: 07/22/19 13:14 [facility] [id number]) OT- Bed Mobility Assessment Rolling Type of Rolling Roll to Right Level of Assistance Standby Assistance Supine to Sit Supine to Sit Assist Standby Assistance Sit to Supine Sit to Supine Assist Standby Assistance OT-Transfer Assessment Sit to and From Stand Sit to and from Stand Standby Assistance Transfers Transfer Ability Standby Assistance Technique Transfer Destination Bed,Chair,Toilet Transfer Technique Stand Step Pivot Devices Transfer Assistive Devices None,Gait Belt Comments Mobility Comments Initially pt pulling up and twisting while trying to sit up in the bed and needing to be educated to do log rolling to roll all the way to her right side and push up with her arms in order to get upright. OT- Gait Assessment Gait Gait Assistance Required: Standby Assistance Comments Gait Ability Comments SBA to distant SBA. Pt at times furniture cruises. OT- Balance Assessment Sitting Balance and Reactions Static Sitting Balance Ability Normal Dynamic Sitting Balance Ability Normal Standing Balance and Reactions Static Standing Balance Ability Good Dynamic Standing Balance Ability Fair M8 OT- IP Objective Assessments Start: 07/22/19 12:40 Freq: Status: Active Protocol: Document 07/22/19 08:57 [facility] (Rec: 07/22/19 13:14 [facility] [id number]) OT Gross Range of Motion Upper Extremity Range of Motion ROM Impairments BUE shoulder flexion 0-95 OT Strength Comments Strength Comments From proximal to distal 3-/5 to 4/5. OT- Coordination Assessment Comments Coordination Comments Increased time for buttons. M9 OT- IP Assessment and Plan Start: 07/22/19 12:40 Freq: Status: Active Protocol: Document 07/22/19 08:57 [facility] (Rec: 07/22/19 13:14 [facility] [id number]) OT Summary Assessment and Plan Potential Rehabilitation Potential Good Analytic Complexity at Evaluation Low Summary OT Impairments Dressing,Bathing Progress Towards Goals Progressing Toward Goals Assessment Summary Pt low complexity and main barriers are donning her bra and dynamic balance. Pt S/P ACDF and will have a friend stay with her during the day. OT educated pt on ADl needs, safety for eating needs, bed mobility and soft collar management needs. Pt looking to go home today . Goals Shower Transfer Goal Standby Assistance Patient/Caregiver Education Goal Demonstrate Post-Op Precautions Days to Meet Goals 1 Frequency of Treatment Frequency Of Treatment Once a Day Treatment Plan OT Treatment Plan ADL Training,Functional Mobility,Patient/Family Education,Discharge Planning Discharge Recommendations OT Discharge Recommendations Home with Assistance Home Equipment Needs shower chair, HHSP Transportation Needs at Discharge Private Vehicle
[2019-07-22] MEDS: ASCORBIC ACID 500 MG TABLET PO (09:00)
[2019-07-22] MEDS: CHOLECALCIFEROL (VITAMIN D3) 1,000 UNIT TABLET 1000 UNIT PO (09:00)
[2019-07-22] MEDS: DOCUSATE 100 MG CAPSULE PO (09:00)
[2019-07-22] MEDS: CELECOXIB 200 MG CAPSULE PO (09:00)
[2019-07-22] MEDS: GABAPENTIN 300 MG CAPSULE PO (09:00)
[2019-07-22] MEDS: ASPIRIN EC 81 MG TABLET 162 MG PO (09:00)
[2019-07-22] MEDS: SODIUM CHLORIDE 0.9% FLUSH 10 ML IV (09:01)
[2019-07-22] MEDS: MAGNESIUM OXIDE 400 MG TABLET PO (09:01)
[2019-07-22] MEDS: VIT C/E/ZN/COPPR/LUTEIN/ZEAXAN CAPSULE 1 CAP PO (09:01)
[2019-07-22] MEDS: LOSARTAN 25 MG TABLET PO (09:01)
--- NOTE | 2019-07-22 09:58 | P.PN_ITS ---
Subjective Subjective Date Patient Seen: 07/22/19 Time Patient Seen: 09:58 Interval history: She is doing very well. All of her biceps pain is gone. She is still having some weakness in the arms but feels like this is more just from disuse atrophy Exam Vital Signs (past 8 hours): - 07/22/19 05:00 07/22/19 08:00 Temperature 98.0 F 97.6 F Pulse Rate 62 64 Respiratory Rate 18 18 Blood Pressure 131/57 L 151/66 H Pulse Oximetry 95 97 Oxygen Delivery Method Room Air Oxygen Flow Rate 0 Const Orientation: alert and oriented x3 Back/Spine/Pelvis Other: CDI. 5/5 motor both upper extremities except for 4/5 bilateral account development executive Assessment & Plan Post-op Postoperative Procedures: Procedures Operation Date: 05/02/19 10:00 <No data on this case meets the specified criteria> Operation Date: 07/21/19 07:45 Actual Procedures Side Surgeon p C5-6 & C6-7 Anterior cervical discectomy and fusion w/bone graft Harry Mclaughlin MD She is doing well. Plan to discharge home today.
--- NOTE | 2019-07-22 10:21 | PT.IPTN ---
Current Diagnoses Spinal stenosis, cervical region (07/21/19) Surgery Performed Operation Date: 05/02/19 10:00 <No data on this case meets the specified criteria> Operation Date: 07/21/19 07:45 Actual Procedures p C5-6 & C6-7 Anterior cervical discectomy and fusion w/bone graft - Harry Mclaughlin MD Physical Therapy Treatment Note M2 PT-IP Current Condition Start: 07/21/19 15:14 Freq: NEEDED Status: Active Protocol: Document 07/21/19 14:25 AB (Rec: 07/21/19 15:57 AB [id number]) Physical Therapy Current Condition Current Condition Evaluation Date 07/21/19 Treatment Diagnosis s/p C5-7 ACDF; difficulty in walking Onset Date 07/21/19 Precautions Cervical Spine Precautions Soft Collar for Comfort,No Heavy Lifting,Log Roll M3 PT-IP Subjective Start: 07/21/19 15:14 Freq: NEEDED Status: Active Protocol: Document 07/22/19 09:56 KS (Rec: 07/22/19 11:11 KS [email or web address]) Subjective Physical Therapy Visit Type Type Treatment Note Visit Start Time 09:56 Visit Stop Time 10:21 Total Visit Minutes 25 Number of TAR PROCESSING TECHNICIAN Visits 1 Physical Therapy Visit Comments Patient Comments pt agreeable to do PT M4 PT-IP Mobility and Gait Start: 07/21/19 15:14 Freq: NEEDED Status: Active Protocol: Document 07/22/19 09:56 KS (Rec: 07/22/19 11:11 KS [email or web address]) PT-Bed Mobility Assessment Rolling Type of Rolling Log Rolling Level of Assist Standby Assistance Supine to Sit Supine to Sit Standby Assistance Sit to Supine Sit to Supine Standby Assistance Scooting Scooting to Edge of Bed Standby Assistance PT-Transfer Assessment Sit to and From Stand Sit to and from Stand Contact Guard Assistance,1 Person Assistance,Use of Upper Extremities Equipment Transfer Assistive Device None,Gait Belt Orthotic/Prosthetic Devices or Brace: Yes Transfers Transfer Destination Chair Transfer Ability Level of Assist Standby Assistance,Contact Guard Assistance,Use of Upper Extremities Comments Mobility Comments Pt was in bed upon arrival from therapy w/ HOB elevated. Pt able to scoot out of bed SBA and sit<>stand CGA. Pt then ambulated w/o AD and SBA ~60 ft. Pt ambulated w/ wide base, but had no LOB throughout ambulation. Pt then completed 3 steps x2 w/ BUE on R handrail ascending and BUE on L hand rail descending. Pt showed good awareness of surroundings and good stair climbing technique. She returned to room and performed logroll into and out of bed SBA w/ cues to roll onto side before scooting legs of of bed . Pt then ambulated ~5 ft to chair SBA. She states that she has a walker at home that she uses when needed and has clear pathways around her house to avoid LOB d/t poor vision. Pt left in chair w/ all needs in reach. Gait Assessment Gait Gait Assistance Required: Standby Assistance,1 Person Assist Distance (Feet) 65 Able to Maintain Weight Bearing Status Yes During Gait Assistive Devices Assistive Device None,Gait Belt Orthotic/Prosthetic Devices or Brace: Yes Gait Deviations General Gait Pattern Antalgic,Wide Based Gait Factors Limiting Gait Function Factors Limiting Gait Function Decreased Activity Tolerance, Decreased Strength,Poor Balance Comments Gait Comments Pt ambulated ~65 ft w/o AD and SBA. Pt has wide based shuffling gait, but was able to remain balanced throughout ambulation. Pt stated that she has her house set up w/ clear pathways and she uses a FWW when needed and a motorized cart while grocery shopping to decrease risk of falls d/t poor vision. Stair Climbing Assessment Evaluation Level of Assist On Stairs Standby Assistance,1 Person Assistance Devices Stair Climbing Assistive Devices Left Railing,Right Railing Technique/Endurance Stair Climbing Direction Ascend and Descend Stair Climbing Technique Step Over Step,Step to Step Number of Steps Climbed 3 Stair Climbing Set # Repetitions (reps) 2 Comments Stair Climbing Comments Pt ascended/descended 3 stepsx2 w/ BUE on R handrail and step over step ascending and BUE on L hand rail and step to step descending. Pt stated she has no problem w/ her 4 steps at home. PT-Balance Assessment Sitting Balance and Reactions Static Sitting Balance Ability Good Dynamic Sitting Balance Ability Good Standing Balance and Reactions Static Standing Balance Ability Good Dynamic Standing Balance Ability Fair Device Used without AD M5 PT-IP Objective Assessments Start: 07/21/19 15:14 Freq: NEEDED Status: Active Protocol: Document 07/21/19 14:25 AB (Rec: 07/21/19 15:57 AB [id number]) Orientation Orientation/Cognition Level of Alertness Alert Orientation Name,Place,Situation Language Function Ability No Deficits Noted Safety Awareness Understands Safety Issues Memory Description No Deficits Noted Gross Range of Motion Lower Extremity ROM Assessment Within Functional Limits Strength Lower Extremity Strength Assessment Within Functional Limits Sensation Assessment Sensation Gross Sensation Right UE Impaired Comments Sensation Comments c/o chronic tingling on RUE Muscle Tone Muscle Tone WNL Yes M6 PT-IP Treatment Start: 07/21/19 15:14 Freq: NEEDED Status: Active Protocol: Document 07/22/19 09:56 KS (Rec: 07/22/19 11:11 KS [email or web address]) Physical Therapy Treatment Education Education Provided Precautions,Post-Op Packet, Safety Other Treatments Other Treatment Performed Reveiwed logroll and precautions, discussed techniques for safe ambulation and stair climbing M7 PT-IP Assessment and Plan Start: 07/21/19 15:14 Freq: NEEDED Status: Active Protocol: Document 07/22/19 09:56 KS (Rec: 07/22/19 11:11 KS [email or web address]) PT Summary Assessment and Plan Potential Rehabilitation Potential Good Status of Condition at Evaluation Stable Summary Impairments Pain,ROM,Strength,Balance, Coordination,Sensation,Bed Mobility,Transfers,Gait, Activity Tolerance Progress Towards Goals Progressing Toward Goals Assessment Summary Pt was SBA for all bed mobility and transfers today. Min cues for proper technique when logrolling, but pt was able to correct quickly. SBA for ambulation and stairs. Pt ambulated ~65 ft and completed 3 steps x2 w/ both hands on handrail ascending and descending. Pt was prepared w/ answers to questions regarding safety at home and how to reduce fall risk and states she has neighbors and friends who can help her if needed. Goals Bed Mobility Goal Independent Transfer Goal Independent Gait Goal Independent Gait Distance 200 Other Goals up/down 4 steps B rails SBA Days to Meet Goals 3 Frequency of Treatment Frequency Of Treatment Twice a Day Treatment Plan Physical Therapy Treatment Plan Bed Mobility Training,Transfer Training,Gait Training, Therapeutic Exercise,Balance Retraining,Post Op Education, Discharge Planning,Hot or Cold Pack,Neuromuscular Re-ed, Coordination Retraining,Manual Therapy Other Recommendations and Next Treatment ambulation, stair climbing, Focus bed mobility Recommendations To Nursing Amount of Assist Needed 1 Person Assist Discharge Recommendations PT Discharge Recommendations Home with Assistance, Outpatient PT Transportation Needs at Discharge Private Vehicle
--- NOTE | 2019-07-22 10:48 | CM.DANOTE ---
DCP: Case received, EMR reviewed and met with patient. Introduced self and role. Was able to meet with patient in her room and obtain information regarding her baseline activity level prior to surgery, and living situation. DCP assessment completed with information currently available. Patient is an 83 year old female who admitted yesterday morning to the care of the orthopedic team. PCP: Dr. Segal. Payer: confirmed: Medicare/[employer]. Patient came to the hospital via private vehicle due to a surgical procedure. She had a cervical diskectomy fusion. She had been having chronic neck pain, as well as numbness to her hands. Met with patient in her room. She was up ambulating wearing neck collar. She is alert and oriented. She is a , her in 2017 from cancer. She does not have children in the area, but has a supportive neighbor, and friends to assist her when she goes home. Patient has not been driving, and stated that her neighbors will tack picker her groceries, or take her to appointments. She is independent otherwise. She has not been using any DME, but does have a walker at home. P: Patient has discharge orders, and will be going home today. She will have a follow up appointment at her orthopedic office. Imani Cruz RN/Graphics Edit Technician
--- NOTE | 2019-07-22 11:31 | PC.NURSE ---
Patient cleared for discharge to home by OT, PT, and MD. Discharge instructions and home care handouts, medications and prescriptions, reviewed with patient, and she states understanding and has no further questions at this time. IV dc'd intact. Gauze with tegaderm dressing to neck and left hip area are both CDI, patient ok to change and shower on POD 5. Patient states she has follow up appointment scheduled but not sure of date, so she will call Dr. Mclaughlin's office on Wednesday to confirm. Patient's friend Aneudy is here to pick her up for discharge to home. Patient instructed to notify MD with any questions or concerns or signs of infection- including fever, chills, unusual pain or redness, or unusual drainage. Patient escorted out via wheelchair with all belongings by [employer].
== END 2019-07-22 11:34 | disposition home or self-care (01) ==
LOC: OR 08:12 → AC 08:12
PROVIDERS: Referring Provider Orthopaedic Surgery; Visit Provider Orthopaedic Surgery
PROC: (CPT 22551; principal; 2019-07-21 07:45)
DX: M50.022 Cervical disc disorder at C5-C6 level with myelopathy (principal); M48.02 Spinal stenosis, cervical region; M47.12 Other spondylosis with myelopathy, cervical region; Z95.1 Presence of aortocoronary bypass graft; I10 Essential (primary) hypertension; I44.7 Left bundle-branch block, unspecified; E11.9 Type 2 diabetes mellitus without complications; K21.9 Gastro-esophageal reflux disease without esophagitis
CPT/HCPCS: 22551; 22552; 22853 ×2; 20939; 36592; 72040; 76000; 82962; 97116; 97161; 97165; 97530; 97535; C1776; J0330; J1100; J1170; J2405; J2704; J3010